=== PATIENT | male | born 1955 | race Caucasian/White ===

== ENCOUNTER 2017-05-05 16:02 | Emergency (ER) | payer SELFPAY ==
[~2017-05-05] VITALS: Ht 172.7 cm; Wt 70.0 kg
[2017-05-05] MEDS ORDERED: ACETAMINOPHEN 325MG TABLET PO ONE (21:15)
[2017-05-05] MEDS ORDERED: LEVETIRACETAM 500MG TABLET PO ONE (22:30)
[2017-05-05] MEDS ORDERED: PHENYTOIN SODIUM EXTENDED 100MG CAPSULE PO ONE (22:30)
[2017-05-05 23:37] VITALS: BP 128/75
== END 2017-05-05 23:40 | disposition home or self-care (01) ==
LOC: ER 16:18
DX: R00.2 Palpitations (principal); G40.909 Epilepsy, unspecified, not intractable, without status epilepticus; F17.210 Nicotine dependence, cigarettes, uncomplicated; Z76.0 Encounter for issue of repeat prescription
CPT/HCPCS: 71010; 93005; 99284